=== PATIENT | male | born 1995 | race African-American/Black ===

== ENCOUNTER 2017-02-08 03:07 | Emergency (ER) | payer OTHER, MEDICAID ==
[~2017-02-08] VITALS: Ht 188 cm; Wt 88.5 kg
[2017-02-08] MEDS ORDERED: IBUPROFEN 400MG TABLET PO NR (06:00)
[2017-02-08 06:58] VITALS: BP 121/81
== END 2017-02-08 07:01 | disposition home or self-care (01) ==
LOC: ER 03:12
DX: R07.89 Other chest pain (principal); F17.210 Nicotine dependence, cigarettes, uncomplicated; Z71.6 Tobacco abuse counseling
CPT/HCPCS: 71010; 99283; 99406; Z7610